=== PATIENT | female | born 1945 | race African-American/Black ===

== ENCOUNTER 2018-02-21 14:30 | Emergency (ER) | payer MEDICARE, OTHER ==
--- NOTE | 2018-02-21 15:20 | ER Document Report ---
ED Medical Screen (RME) - General Chief Complaint: General Weakness Stated Complaint: DIZZINESS, LEG WEAKNESS Time Seen by Provider: 02/21/18 15:09 Notes: 72 years old female presents today with general weakness tiredness as well as difficulty walking for the last several weeks. TRAVEL OUTSIDE OF THE [place] IN LAST 30 DAYS: No - Related Data Allergies/Adverse Reactions: No Known Allergies Allergy (Unverified 02/21/18 14:36) Physical Exam - Vital signs Vitals: Temp Pulse Resp BP Pulse Ox 98.5 F 84 14 92/71 L 100 02/21/18 14:43 02/21/18 14:43 02/21/18 14:43 02/21/18 14:43 02/21/18 14:43 Course - Vital Signs Vital signs: Temp Pulse Resp BP Pulse Ox 98.5 F 84 14 92/71 L 100 02/21/18 14:43 02/21/18 14:43 02/21/18 14:43 02/21/18 14:43 02/21/18 14:43 Doctor's Discharge - Discharge Referrals: LOCALMD,NO [Primary Care Provider] - Follow up as needed
--- NOTE | 2018-02-21 15:58 | ER Document Report ---
ED General - General Chief Complaint: General Weakness Stated Complaint: DIZZINESS, LEG WEAKNESS Time Seen by Provider: 02/21/18 15:09 Mode of Arrival: Ambulatory Information source: Patient, Relative, [facility] Records Notes: 72-year-old female with hypothyroidism, hyperlipidemia, hypertension presents via private vehicle with her daughter and family who are concerned for progressive weakness, decreased appetite, weight loss and a fall that occurred yesterday. Patient has had leg weakness for approximately 2 months with worsening of weakness this week. Family reports that every time the patient gets up to walk her legs began to wobble and she has to sit down immediately. Daughter reports that the patient has had a poor appetite and will only take small meals and Ensure. Patient had a fall at 3 AM 12 hours prior to arrival and struck her head on the dresser. She denies loss of consciousness. Patient has been seen by neurology and has had a recent head MRI which is reported to be normal. Patient has been recently treated for a urinary tract infection by her primary care physician Dr. Martinez and is currently on Macrobid. Patient also complaining of constipation and states that she has not had a normal bowel movement in over a week despite taking MiraLAX. Patient denies any abdominal pain, chest pain, shortness of breath, back pain. Although patient denies shortness of breath daughter reports that patient seems to be short of breath with exertion. TRAVEL OUTSIDE OF THE [place] IN LAST 30 DAYS: No - HPI Onset: Other Onset/Duration: Gradual, Persistent, Worse Quality of pain: No pain Associated symptoms: Nausea. denies: Chest pain, Vomiting, Shortness of breath Similar symptoms previously: Yes Recently seen / treated by doctor: Yes - Related Data Allergies/Adverse Reactions: No Known Allergies Allergy (Unverified 02/21/18 14:36) Past Medical History - General Information source: Patient - Social History Smoking Status: Former Smoker Frequency of alcohol use: None Drug Abuse: None Lives with: Family Family History: Reviewed & Not Pertinent Patient has suicidal ideation: No Patient has homicidal ideation: No - Past Medical History Cardiac Medical History: Reports: Hx Hypercholesterolemia, Hx Hypertension Renal/ Medical History: Denies: Hx Peritoneal Dialysis Past Surgical History: Reports: Hx Gynecologic Surgery - partial hysterectomy Review of Systems - Review of Systems Notes: REVIEW OF SYSTEMS: CONSTITUTIONAL : Denies fever, chills, or sweats. Denies recent illness. Denies weight loss, recent hospitalizations. EENT: Denies visual changes, eye pain. Denies nasal or sinus congestion or discharge. Denies sore throat, oral lesions, difficulty swallowing. CARDIOVASCULAR: Denies chest pain. Denies palpitations. Denies lower extremity edema. RESPIRATORY: Denies cough, cold, or chest congestion. Denies shortness of breath, wheezing. GASTROINTESTINAL: Denies abdominal pain or distention. Denies nausea, vomiting , or diarrhea. Denies blood in vomitus, stools, or per rectum. Denies black, tarry stools. Denies constipation. GENITOURINARY: Denies difficulty urinating, painful urination, frequency, blood in urine, or vaginal discharge. MUSCULOSKELETAL: Denies back or neck pain or stiffness. Denies joint pain or swelling. SKIN: Denies rash, lesions or sores. HEMATOLOGIC : Denies easy bruising or bleeding. LYMPHATIC: Denies swollen glands. NEUROLOGICAL: Denies confusion or altered mental status. Denies passing out or loss of consciousness. Denies dizziness or lightheadedness. Denies headache. Denies paralysis. Denies problems difficulty with ambulation, slurred speech. Denies sensory loss, numbness, or tingling. Denies seizures. PSYCHIATRIC: Denies anxiety or stress. Denies depression, suicidal ideation, or homicidal ideation. Denies visual or auditory hallucinations. Constitutional: Weakness Physical Exam - Vital signs Vitals: Temp Pulse Resp BP Pulse Ox 98.5 F 84 14 92/71 L 100 02/21/18 14:43 02/21/18 14:43 02/21/18 14:43 02/21/18 14:43 02/21/18 14:43 - Notes Notes: PHYSICAL EXAMINATION: GENERAL: Well-appearing, well-nourished and in no acute distress. HEAD: Atraumatic, normocephalic. EYES: Pupils equal round and reactive to light, extraocular movements intact, conjunctiva are normal. ENT: Nares patent, oropharynx clear without exudates. Moist mucous membranes. NECK: Normal range of motion, supple without lymphadenopathy LUNGS: Breath sounds clear to auscultation bilaterally and equal. No wheezes rales or rhonchi. HEART: Regular rate and rhythm without murmurs ABDOMEN: Soft, nontender, nondistended abdomen. No guarding, no rebound. No masses appreciated. Female : deferred Musculoskeletal: Normal range of motion, no pitting or edema. No cyanosis. NEUROLOGICAL: Cranial nerves grossly intact. Normal speech. Normal sensory, motor exams. NIH 0 PSYCH: Normal mood, normal affect. SKIN: Warm, Dry, normal turgor, no rashes or lesions noted. Course - Re-evaluation Re-evalutation: Laboratory 02/21/18 02/21/18 02/21/18 16:30 16:30 16:30 WBC 6.7 RBC 4.09 Hgb 11.4 L Hct 35.0 L MCV 86 MCH 28.0 MCHC 32.7 RDW 14.0 Plt Count 225 Seg Neutrophils % 69.0 Lymphocytes % 18.8 Monocytes % 11.2 Eosinophils % 0.5 Basophils % 0.5 Absolute Neutrophils 4.6 Absolute Lymphocytes 1.3 Absolute Monocytes 0.8 Absolute Eosinophils 0.0 Absolute Basophils 0.0 Sodium 142.8 Potassium 4.0 Chloride 101 Carbon Dioxide 31 H Anion Gap 11 BUN 25 H Creatinine 1.41 H Est GFR ( Amer) 44 L Est GFR (Non-Af Amer) 37 L Glucose 109 Calcium 10.1 Total Bilirubin 0.4 Direct Bilirubin 0.3 Neonat Total Bilirubin Not Reportable Neonat Direct Bilirubin Not Reportable Neonat Indirect Bili Not Reportable AST 20 ALT 19 Alkaline Phosphatase 88 Troponin I < 0.012 NT-Pro-B Natriuret Pep 178 Total Protein 6.9 Albumin 4.0 TSH Free T4 Free T3 pg/mL Urine Color Urine Appearance Urine pH Ur Specific Carson Urine Protein Urine Glucose (UA) Urine Ketones Urine Blood Urine Nitrite Urine Bilirubin Urine Urobilinogen Ur Leukocyte Esterase Urine WBC (Auto) Urine RBC (Auto) U Hyaline Cast (Auto) Squamous Epi Cells Auto Urine Mucus (Auto) Urine Ascorbic Acid 02/21/18 02/21/18 16:30 17:24 WBC RBC Hgb Hct MCV MCH MCHC RDW Plt Count Seg Neutrophils % Lymphocytes % Monocytes % Eosinophils % Basophils % Absolute Neutrophils Absolute Lymphocytes Absolute Monocytes Absolute Eosinophils Absolute Basophils Sodium Potassium Chloride Carbon Dioxide Anion Gap BUN Creatinine Est GFR ( Amer) Est GFR (Non-Af Amer) Glucose Calcium Total Bilirubin Direct Bilirubin Neonat Total Bilirubin Neonat Direct Bilirubin Neonat Indirect Bili AST ALT Alkaline Phosphatase Troponin I NT-Pro-B Natriuret Pep Total Protein Albumin TSH 0.24 L Free T4 1.02 Free T3 pg/mL 2.81 Urine Color YELLOW Urine Appearance SLIGHTLY-CLOUDY Urine pH 7.0 Ur Specific Carson 1.015 Urine Protein NEGATIVE Urine Glucose (UA) NEGATIVE Urine Ketones NEGATIVE Urine Blood NEGATIVE Urine Nitrite NEGATIVE Urine Bilirubin NEGATIVE Urine Urobilinogen NEGATIVE Ur Leukocyte Esterase NEGATIVE Urine WBC (Auto) 1 Urine RBC (Auto) 1 U Hyaline Cast (Auto) 12 Squamous Epi Cells Auto 1 Urine Mucus (Auto) RARE Urine Ascorbic Acid NEGATIVE Head CT 02/21/18 15:19 IMPRESSION: NORMAL BRAIN CT WITHOUT CONTRAST. EVIDENCE OF ACUTE STROKE: NO. Chest X-Ray 02/21/18 15:49 IMPRESSION: NO ACUTE RADIOGRAPHIC FINDING IN THE CHEST. Abdomen X-Ray 02/21/18 16:12 IMPRESSION: NO RADIOGRAPHIC EVIDENCE FOR ACUTE ABDOMINAL DISEASE. 02/21/18 16:09 72-year-old female with hypothyroidism, hyperlipidemia, hypertension presents via private vehicle with her daughter and family who are concerned for progressive weakness, decreased appetite, weight loss and a fall that occurred yesterday. Patient has had leg weakness for approximately 2 months with worsening of weakness this week. Upon arrival vitals were reviewed and within normal limits. Patient does not appear toxic, she does appear mildly dehydrated. She is alert and oriented 4. She has a normal neurologic and physical exam. NIH is 0. Patient has 5 out of 5 strength in her upper and lower extremities. CBC is without leukocytosis, anemia. CMP does show an elevated creatinine of 1.41 for which patient received 2 L of IV fluids. This is likely secondary to patient's poor p.o. intake. I have no previous labs to compare. Patient does have a low TSH but normal T3 and T4. CT of the head was obtained because of the patient's recent fall and that showed no acute process. Chest x-ray also within normal limits. Abdominal x-ray also within normal limits. Daughter is at the bedside and states that patient has been seen by neurology and has had a recent normal MRI of her brain. Patient has been on Macrobid for her urinary tract infection which is undetectable today. Cardiac enzymes within normal limits. This is an ongoing, progressing problem. Patient is already in physical therapy. I see no need or benefit for hospitalizations at this time. I did advise that the patient use a walker and offered to provide a prescription but the family states that they have that handled. Patient/family provided the opportunity to ask questions, and express concerns. Discharge instructions discussed. Patient is agreeable with discharge home. Return indications explained and discussed with the patient who displays understanding. Patient encouraged to return to the emergency department immediately with any concerns. 02/21/18 23:01 I did speak to Dr. Evans who is covering for Dr. Martinez we did review the physical exam and lab findings. He advises follow-up with Dr. Martinez on Saturday. 02/21/18 23:01 02/21/18 23:06 - Vital Signs Vital signs: Temp Pulse Resp BP Pulse Ox 98.5 F 84 13 133/88 H 100 02/21/18 14:43 02/21/18 14:43 02/21/18 18:01 02/21/18 18:01 02/21/18 18:01 - Laboratory Result Diagrams: 02/21/18 16:30 02/21/18 16:30 Laboratory results interpreted by me: 02/21/18 02/21/18 02/21/18 16:30 16:30 16:30 Hgb 11.4 L Hct 35.0 L Carbon Dioxide 31 H BUN 25 H Creatinine 1.41 H Est GFR ( Amer) 44 L Est GFR (Non-Af Amer) 37 L TSH 0.24 L - Diagnostic Test Radiology reviewed: Image reviewed, Reports reviewed - EKG Interpretation by Me EKG shows normal: Sinus rhythm Rate: Normal Rhythm: NSR Heart block present: 1st Degree When compared to previous EKG there are: Previous EKG unavailable Discharge - Discharge Clinical Impression: Weakness generalized, JAY (acute kidney injury), Decreased appetite, Low TSH level Condition: Good Disposition: HOME, SELF-CARE Instructions: Kidney Injury ([facility]), Weakness ([facility]) Additional Instructions: Please follow-up with Dr. Martinez on Saturday. Your labs today indicate mild dehydration. It is very important that you take in plenty of water throughout the day. I advised using a walker when walking anywhere. Forms: Parent Work Note, Elevated Blood Pressure Referrals: LOCALMD,NO [NO LOCAL MD] - Follow up as needed ED NIH Stroke Scale - NIH Stroke Scale *: 1. NIH scale should be completed with appropriate accompanying assessment tools. *: 2. The NIH should reflect what the patient is capable of doing and should not be coached by the clinician. 1a. Level of Consciousness: 0=Alert;keenly responsive -: 1=Drowsy -: 2=Obtunded -: 3=Coma/unresponsive or reflex to noxious stimuli. 1a. Responses: 0 1b. Orientation Questions: a. What month is it? -: b. How old are you? -: 0=Answers both questions correctly. -: 1=Answers one question correctly or patient is intubated or has orotracheal trauma. -: 2=Answers neither question correctly. 1b. Responses: 0 1c. Response to commands: a. Open and close eyes? -: b. [employer] Signal [employer]er and release hand? -: Credit is given despite weakness. Demonstration of task is permitted. Substitute command if hands cannot be used. -: 0=Performs both tasks correctly -: 1=Performs one task correctly -: 2=Performs neither task correctly 1c. Responses: 0 2. Gaze: Establish eye contact and instruct patient to "Follow my finger" -: 0=Normal -: 1=Partial gaze palsy. Gaze is abnormal in one or both eyes, but where forced deviation or total gaze paresis is not present. -: 2=Forced deviation or total gaze paresis. 2. Responses: 0 3. Visual Roe: Sees fingers in all four quadrants. -: 0=No visual loss. -: 1=Partial hemianopsia. -: 2=Complete hemianopsia. -: 3=Bilateral hemianopsia (including Cortical blindness) 3. Responses: 0 4. Facial Movement: Instruct patient to: -: a. Show me your teeth -: b. Raise your eyebrows -: c. Close your eyes -: d. Smile -: 0=Normal symmetrical movement -: 1=Minor paralysis (flattened nasolabial fold, asymmetry on smiling). -: 2=Partial paralysis (total or near total paralysis of lower face). -: 3=Complete paralysis of upper and lower face 4. Responses: 0 5. Motor functions (left arm): Alternate sides and extend each arm with palms down (90 degrees if sitting or 45 degrees for supine). -: 0=No drift;limb holds for full 10 seconds. -: 1=Drift; limb holds but drifts down before full 10 seconds, but does not hit bed. -: 2=Some effort against gravity; limb cannot get to or maintain position. -: 3=No effort against gravity; limb falls. -: 4=No movement. -: UN=Amputation, joint fusion, explain in comments. 5. Responses (left arm): 0 5. Motor Functions (right arm): Alternate sides and extend each arm with palms down (90 degrees if sitting or 45 degrees for supine). -: 0=No drift;limb holds for full 10 seconds. -: 1=Drift; limb holds but drifts down before full 10 seconds, but does not hit bed. -: 2=Some effort against gravity; limb cannot get to or maintain position. -: 3=No effort against gravity; limb falls. -: 4=No movement. -: UN=Amputation, joint fusion, explain in comments. 5. Responses (right arm): 0 6. Motor Functions (left leg): With patient lying supine, alternate sides and extend each leg (30 degrees always while supine). -: 0=No drift, leg holds position for full 5 seconds -: 1=Drift; leg falls before full 5 seconds but does not hit bed. -: 2=Some effort against gravity, leg falls to bed but some effort against gravity. -: 3=No effort against gravity, leg falls to bed immediately. -: 4=No movement. -: UN=Amputation, joint fusion; explain in comments. 6. Responses (left leg): 0 6. Motor Functions (right leg): With patient lying supine, alternate sides and extend each leg (30 degrees always while supine). -: 0=No drift, leg holds position for full 5 seconds -: 1=Drift; leg falls before full 5 seconds but does not hit bed. -: 2=Some effort against gravity, leg falls to bed but some effort against gravity. -: 3=No effort against gravity, leg falls to bed immediately. -: 4=No movement. -: UN=Amputation, joint fusion; explain in comments. 6. Responses (right leg): 0 7. Limb Ataxia: With eyes open instruct patient to: -: a. "Touch your finger to your nose". -: b. "Touch your heel to your cevallos" -: 0=Absent -: 1=Present in one limb. -: 2=Present in two limbs. -: UN=Amputation or joint fusion; explain in comments. 7. Responses: 0 8. Sensory: Test sensation using pinprick or noxious stimuli. Test as many body parts as possible. -: 0=Normal;no sensory loss -: 1=Mile to moderate sensory loss (patient feels pin prick but is less sharp on affected side). -: 2=Severe or total sensory loss. 8. Responses: 0 9. Best Language: Instruct patient to: -: a. "Describe what you see in this picture." -: b. "Name the items in this picture." -: c. "Read these sentences." -: 0=No aphasia, normal -: 1=Mild to moderate aphasia. -: 2=Severe aphasia -: 3=Mute, global aphasia, no usable speech or auditory comprehension. 9. Responses: 0 10. Articulation, Dysarthia: Instruct patient to: -: "Read these words" or "Repeat these words" -: 0=Normal -: 1=Mild to moderate; patient may slur some words but can be understood without difficulty. -: 2=Severe; patients speech so slurred as to be unintelligible in the absence of dysphasia. -: UN=Intubated or other physical barrier, explain in comments. 10. Responses: 0 11. Extinction or inattention: 0=No abnormality -: 1= Visual, tactile, auditory, spatial, or personal inattention or extinction to bilateral simulation in one or the sensory modalities. -: 2=Profound kimmy-inattention or kimmy-inattention to more than one modality; does not recognize own hand. 11. Responses: 0 Total Score: 0
[2018-02-21] MEDS ORDERED: NORMAL SALINE 500 ML IV ONE ×2 (16:01→17:18)
--- NOTE | 2018-02-21 16:13 | RADIOLOGY REPORT (SQ) ---
EXAM DESCRIPTION: CHEST 2 VIEWS COMPLETED DATE/TIME: 02/21/2018 4:07 pm REASON FOR STUDY: weakness COMPARISON: None. EXAM PARAMETERS: NUMBER OF VIEWS: two views TECHNIQUE: Digital Frontal and Lateral radiographic views of the chest acquired. RADIATION DOSE: NA LIMITATIONS: none FINDINGS: LUNGS AND PLEURA: No opacities, masses or pneumothorax. No pleural effusion. MEDIASTINUM AND HILAR STRUCTURES: No masses or contour abnormalities. HEART AND VASCULAR STRUCTURES: Heart normal size. No evidence for failure. Ectatic aorta. BONES: No acute findings. HARDWARE: None in the chest. OTHER: No other significant finding. IMPRESSION: NO ACUTE RADIOGRAPHIC FINDING IN THE CHEST. TECHNICAL DOCUMENTATION: JOB ID: [id number] [employer]- All Rights Reserved Reading location - IP/workstation name: [email or web address]
--- NOTE | 2018-02-21 16:28 | RADIOLOGY REPORT (SQ) ---
EXAM DESCRIPTION: CT HEAD WITHOUT COMPLETED DATE/TIME: 02/21/2018 4:12 pm REASON FOR STUDY: Headache COMPARISON: None. TECHNIQUE: Axial images acquired through the brain without intravenous contrast. Images reviewed wi th bone, brain and subdural windows. Additional sagittal and coronal reconstructions were generated. Images stored on PACS. All CT scanners at this facility use dose modulation, iterative reconstruction, and/or weight based d osing when appropriate to reduce radiation dose to as low as reasonably achievable (ALARA). [facility]: Dose Right [facility]: CareDose [facility]: Dose Right [facility]: Teradose 4D [facility]: [employer] RADIATION DOSE: CT Rad equipment meets quality standard of care and radiation dose reduction techniq ues were employed. CTDIvol: 53.2 mGy. DLP: 1124 mGy-cm. mGy. LIMITATIONS: None. FINDINGS: VENTRICLES: Normal size and contour. CEREBRUM: No masses. No hemorrhage. No midline shift. No evidence for acute infarction. Normal gra y/white matter differentiation. No areas of low density in the white matter. CEREBELLUM: No masses. No hemorrhage. No alteration of density. No evidence for acute infarction. EXTRAAXIAL SPACES: No fluid collections. No masses. ORBITS AND GLOBE: No intra- or extraconal masses. Normal contour of globe without masses. CALVARIUM: No fracture. PARANASAL SINUSES: No fluid or mucosal thickening. SOFT TISSUES: No mass or hematoma. OTHER: No other significant finding. IMPRESSION: NORMAL BRAIN CT WITHOUT CONTRAST. EVIDENCE OF ACUTE STROKE: NO. COMMENT: Quality ID # [id number]: Final reports with documentation of one or more dose reduction techniques (e.g., Automated exposure control, adjustment of the mA and/or kV according to patient size, use of iterative reconstruction technique) TECHNICAL DOCUMENTATION: JOB ID: [id number] [email or web address]- All Rights Reserved Reading location - IP/workstation name: [email or web address]
[2018-02-21] MEDS ORDERED: METOCLOPRAMIDE HCL INJ/PF 10 MG/2 ML SDV IV ONE (16:37)
[2018-02-21 16:51] LABS: ABSOLUTE LYMPHOCYTES (AUTO) 1.3 10^3/uL (0.5-4.7); ABSOLUTE MONOCYTES (AUTO) 0.8 10^3/uL (0.1-1.4); ABSOLUTE NEUT (AUTO) 4.6 10^3/uL (1.7-8.2); BASOPHILS % (AUTO) 0.5 % (0-2); EOSINOPHILS % (AUTO) 0.5 % (0-6); HEMOGLOBIN 11.4 g/dL (12.0-15.5); LYMPHOCYTES % (AUTO) 18.8 % (13-45); MEAN CORPUSCULAR HGB CONC 32.7 g/dL (32.0-36.0); MEAN CORPUSCULAR VOLUME 86 fl (80-97); MONOCYTES % (AUTO) 11.2 % (3-13); PLATELET COUNT 225 10^3/uL (150-450); RED BLOOD COUNT 4.09 10^6/uL (3.72-5.28); TOTAL CELLS COUNTED % (AUTO) 100 %; WHITE BLOOD COUNT 6.7 10^3/uL (4.0-10.5)
--- NOTE | 2018-02-21 16:54 | RADIOLOGY REPORT (SQ) ---
EXAM DESCRIPTION: ABDOMEN 2 VIEWS COMPLETED DATE/TIME: 02/21/2018 4:26 pm REASON FOR STUDY: constipation COMPARISON: None. NUMBER OF VIEWS: Two views. TECHNIQUE: Supine and upright radiographic images of the abdomen acquired. LIMITATIONS: None. FINDINGS: FREE AIR: None. No abnormal gas collections. LUNG BASES: Clear. BOWEL GAS PATTERN: Nonobstructive pattern. No dilated loops or air fluid levels. CALCIFICATIONS: No suspicious calcifications. SOFT TISSUES: No gross mass or suggestion of organomegaly. HARDWARE: None in the abdomen. BONES: No acute fracture. No worrisome bone lesions. OTHER: No other significant finding. IMPRESSION: NO RADIOGRAPHIC EVIDENCE FOR ACUTE ABDOMINAL DISEASE. TECHNICAL DOCUMENTATION: JOB ID: [id number] [email or web address]- All Rights Reserved Reading location - IP/workstation name: [email or web address][email or web address]
[2018-02-21 17:15] LABS: ALANINE AMINOTRANSFERASE 19 U/L (9-52); ALKALINE PHOSPHATASE 88 U/L (38-126); ANION GAP 11 (5-19); ASPARTATE AMINO TRANSFERASE 20 U/L (14-36); BILIRUBIN,DIRECT 0.3 mg/dL (0.0-0.4); BILIRUBIN,TOTAL 0.4 mg/dL (0.2-1.3); BLOOD UREA NITROGEN 25 mg/dL (7-20); CALCIUM 10.1 mg/dL (8.4-10.2); CARBON DIOXIDE 31 mmol/L (22-30); CHLORIDE 101 mmol/L (98-107); GLUCOSE 109 mg/dL (75-110); SODIUM 142.8 mmol/L (137-145); TOTAL PROTEIN 6.9 g/dL (6.3-8.2)
[2018-02-21 17:27] LABS: NT PRO BNP 178 pg/mL (5-900)
[2018-02-21 17:30] LABS: TROPONIN I < 0.012 ng/mL
[2018-02-21 17:33] LABS: FREE T3 2.81 pg/mL (2.77-5.27); FREE T4 (FREE THYROXINE) 1.02 ng/dL (0.78-2.19)
[2018-02-21 17:41] LABS: APPEARANCE,URINE SLIGHTLY-CLOUDY; BILIRUBIN,URINE NEGATIVE (NEGATIVE); COLOR,URINE YELLOW; GLUCOSE, URINE NEGATIVE (NEGATIVE); KETONES,URINE NEGATIVE (NEGATIVE); LEUKOCYTE ESTERASE,URINE NEGATIVE (NEGATIVE); NITRITE,URINE NEGATIVE (NEGATIVE); PROTEIN,URINE NEGATIVE (NEGATIVE); URINE SPECIFIC GRAVITY 1.015; UROBILINOGEN,URINE NEGATIVE mg/dL (<2.0)
[2018-02-21 17:47] LABS: THYROID STIMULATING HORMONE 0.24 uIU/mL (0.47-4.68)
[2018-02-21 18:14] VITALS: BP 133/88
--- NOTE | 2018-02-21 19:13 | EKG REPORT ---
SEVERITY:- ABNORMAL ECG - SINUS RHYTHM FIRST DEGREE AV BLOCK LEFT AXIS DEVIATION : Confirmed by: Yeison Lobato MD 21-Feb-2018 19:13:12
== END 2018-02-21 18:41 | disposition home or self-care (01) ==
LOC: EDBD → ER 14:30
DX: N17.9 Acute kidney failure, unspecified (principal); R42 Dizziness and giddiness; M62.81 Muscle weakness (generalized); R63.0 Anorexia; E03.9 Hypothyroidism, unspecified; E78.5 Hyperlipidemia, unspecified; I10 Essential (primary) hypertension; Z87.891 Personal history of nicotine dependence; R29.700 NIHSS score 0
CPT/HCPCS: 93005; 99285; 96360; 96361; 36415; 84439; 84443; 85025; 80053; 81001; 84484; 84481; 83880; 74019; 71046; 70450; 93010; J2765; J7040

== ENCOUNTER 2019-01-25 11:07 | Emergency (ER) | payer MEDICARE, OTHER ==
[2019-01-25 11:11] VITALS: BP 126/85
[2019-01-25] MEDS ORDERED: TETRACAINE HCL 0.5% OPH SOLN 4 ML OD ONE (11:23)
--- NOTE | 2019-01-25 11:26 | ER Document Report ---
HPI - HPI Patient complains to provider of: right eye irritation Time Seen by Provider: 01/25/19 11:15 Onset: This morning Onset/Duration: Sudden Quality of pain: No pain Pain Level: Denies Context: This 73-year-old female presents emergency department with complaints of right eye redness. She reports that she woke up this morning her eye was red and she had clear drainage coming out of it. Denies matting. Denies pain denies trauma. She reports it does feel like something is in it. Sub-conjunctive a little hemorrhage noted. Patient does have history of cataract surgery 1 year ago in a couple months ago she had a film removed. She reports she is been sneezing and coughing a lot. She denies fever vomiting diarrhea. Denies problems with her visions. Associated Symptoms: None Exacerbated by: Denies Relieved by: Denies Similar symptoms previously: No Recently seen / treated by doctor: No - CONSTITUTIONAL Constitutional: DENIES: Fever, Chills - EENT EENT: REPORTS: Eye problems - R eye Past Medical History - General Information source: Patient, Relative - Social History Smoking Status: Never Smoker Cigarette use (# per day): No Frequency of alcohol use: None Drug Abuse: None Family History: Reviewed & Not Pertinent Patient has suicidal ideation: No Patient has homicidal ideation: No - Past Medical History Cardiac Medical History: Reports: Hx Hypercholesterolemia, Hx Hypertension Renal/ Medical History: Denies: Hx Peritoneal Dialysis Past Surgical History: Reports: Hx Gynecologic Surgery - partial hysterectomy, Other - Cataract surgery 1 year ago with the film removed couple months ago. Vertical Provider Document - CONSTITUTIONAL Agree With Documented VS: Yes Exam Limitations: No Limitations General Appearance: WD/WN, No Apparent Distress - INFECTION CONTROL TRAVEL OUTSIDE OF THE [place] IN LAST 30 DAYS: No - HEENT HEENT: Atraumatic, Conjuctival Injection, Normocephalic, PERRLA - NECK Neck: Normal Inspection, Supple. negative: Lymphadenopathy-Left, Lymph adenopathy-Right - RESPIRATORY Respiratory: Breath Sounds Normal, No Respiratory Distress - CARDIOVASCULAR Cardiovascular: Regular Rate - MUSCULOSKELETAL/EXTREMETIES Musculoskeletal/Extremeties: PASQUALE RG - NEURO Level of Consciousness: Awake, Alert, Appropriate Motor/Sensory: No Motor Deficit - DERM Integumentary: Warm, Dry Course - Re-evaluation Re-evalutation: 01/25/19 14:10 This 73-year-old female presents the emergency department with complaints of red eye with clear drainage that started today. Reports she woke up with eye red denies pain. Feels like something is in it. Denies trauma. Reports history of cataract surgery 1 year ago and couple months ago she had a film removed. Patient tolerated eye exam without problems. She was instructed on subconjunctival tibial hemorrhage. She was also instructed on importance of follow-up with her assembly room supervisor tomorrow she verbalized understanding to all instructions. Dictation of this chart was performed using voice recognition software; therefore, there may be some unintended grammatical errors. - Vital Signs Vital signs: Temp Pulse Resp BP Pulse Ox 98.3 F 96 16 126/85 H 98 01/25/19 11:10 01/25/19 11:10 01/25/19 11:10 01/25/19 11:10 01/25/19 11:10 Procedures - Eye Procedure Right Eye Irrigated w/ Saline (ccs): 10 Alcaine Drops Administered: Yes - tetracaine Fluorescein applied: Right Slit lamp used: No Notes: 01/25/19 14:10 smith lamp utilized, no signs of abrasion, pt tolerated procedure well Discharge - Discharge Clinical Impression: Subconjunctival hemorrhage of right eye Condition: Stable Disposition: HOME, SELF-CARE Instructions: Subconjunctival Hemorrhage ([facility]) Additional Instructions: *You have been evaluated for subconjunctival hemorrhage *Good hand washing *Monitor your eye for drainage pain vision problems *Follow up with an assembly room supervisor Dr Mary Ayala tomorrow for recheck *Return to ED for worsening condition, changes, needs Forms: Elevated Blood Pressure Referrals: VALERIANO SHEPPARD MD [Primary Care Provider] - Follow up as needed
== END 2019-01-25 11:55 | disposition home or self-care (01) ==
LOC: ER 11:07
DX: H11.31 Conjunctival hemorrhage, right eye (principal); E78.00 Pure hypercholesterolemia, unspecified; I10 Essential (primary) hypertension
CPT/HCPCS: 99283; J3490

== ENCOUNTER → 2019-03-24 | Outpatient (CLI) | payer MEDICARE, OTHER ==
--- NOTE | 2019-03-24 15:48 | WOMENS IMAGING REPORT ---
EXAM DESCRIPTION: 3D SCREENING MAMMO BILAT COMPLETED DATE/TIME: 03/24/2019 3:11 pm REASON FOR STUDY: Z12.31 ENCOUNTER FOR SCREENING MAMMOGRAM FOR MALIGNANT NEOPLASM OF BREAST Z12.31 ENCNTR SCREEN MAMMOGRAM FOR MALIGNANT NEOPLASM OF [place] COMPARISON: No previous EXAM PARAMETERS: Views: Standard craniocaudal and mediolateral oblique views of each breast recorded using digital acquisition and breast tomosynthesis. Read with the assistance of CAD. .[facility] - [employer] Customer Success Specialist Version 9.2 LIMITATIONS: None. FINDINGS: No suspicious masses, suspicious calcifications or architectural distortion. No areas of c oncern. IMPRESSION: NEGATIVE MAMMOGRAM. BIRADS 1. BREAST DENSITY: a. The breasts are almost entirely fatty. BIRAD: ASSESSMENT: 1 NEGATIVE RECOMMENDATION: ROUTINE SCREENING COMMENT: The patient has been notified of the results by letter per MQSA requirements. Additional no tification policies are in place for contacting patient with suspicious or incomplete findings. Quality ID #[id number]: The [employer] recommends an annual screening mammogram for women aged 40 years or over. This facility utilizes a reminder system to ensure that all patients receive reminder letters, and/or direct phone calls for appointments. This includes reminders for routine scr eening mammograms, diagnostic mammograms, or other Breast Imaging Interventions when appropriate. Th is patient will be placed in the appropriate reminder system. TECHNICAL DOCUMENTATION: FINDING NUMBER: (1) ASSESSMENT: (1) JOB ID: [id number] [employer]- All Rights Reserved Reading location - IP/workstation name: [email or web address]
== END ==
LOC: WI 14:47
PROVIDERS: ATTEND Family Medicine
DX: Z12.31 Encounter for screening mammogram for malignant neoplasm of breast (principal)
CPT/HCPCS: 77063; 77067

== ENCOUNTER → 2019-03-25 | Outpatient (CLI) | payer MEDICARE, OTHER ==
[2019-03-25 11:11] LABS: HEMATOCRIT 34.3 % (36.0-47.0); HEMOGLOBIN 11.1 g/dL (12.0-15.5); MEAN CORPUSCULAR HEMOGLOBIN 28.5 pg (27.0-33.4); MEAN CORPUSCULAR HGB CONC 32.4 g/dL (32.0-36.0); MEAN CORPUSCULAR VOLUME 88 fl (80-97); PLATELET COUNT 223 10^3/uL (150-450); RED BLOOD COUNT 3.91 10^6/uL (3.72-5.28); RED CELL DISTRIBUTION WIDTH 15.7 % (11.5-14.0); WHITE BLOOD COUNT 3.8 10^3/uL (4.0-10.5)
[2019-03-25 11:27] LABS: APPEARANCE,URINE CLOUDY; BILIRUBIN,URINE NEGATIVE (NEGATIVE); COLOR,URINE YELLOW; GLUCOSE, URINE NEGATIVE (NEGATIVE); KETONES,URINE NEGATIVE (NEGATIVE); LEUKOCYTE ESTERASE,URINE SMALL (NEGATIVE); NITRITE,URINE NEGATIVE (NEGATIVE); PROTEIN,URINE NEGATIVE (NEGATIVE); URINE SPECIFIC GRAVITY 1.017; UROBILINOGEN,URINE NEGATIVE mg/dL (<2.0)
[2019-03-25 11:36] LABS: ANION GAP 7 (5-19); BLOOD UREA NITROGEN 18 mg/dL (7-20); CALCIUM 10.2 mg/dL (8.4-10.2); CARBON DIOXIDE 30 mmol/L (22-30); CHLORIDE 104 mmol/L (98-107); GLUCOSE 109 mg/dL (75-110); IRON(TIBC) 68.1 ug/dL (37-170)
== END ==
LOC: OD 10:25
PROVIDERS: ATTEND Internal Medicine Nephrology
DX: I12.9 Hypertensive chronic kidney disease with stage 1 through stage 4 chronic kidney disease, or unspecified chronic kidney disease (principal); N18.3 Chronic kidney disease, stage 3 (moderate); D63.1 Anemia in chronic kidney disease
CPT/HCPCS: 36415; 80048; 81001; 82728; 83540; 83550; 85027

== ENCOUNTER 2020-05-10 11:50 | Inpatient (IN) | payer MEDICARE, OTHER ==
--- NOTE | 2020-05-10 13:04 | ER Document Report ---
ED Medical Screen (RME) - General Stated Complaint: ALTERED MENTAL STATUS Time Seen by Provider: 05/10/20 12:51 Primary Care Provider: Francis TRUONG MD [Primary Care Provider] - Follow up as needed TRAVEL OUTSIDE OF THE [place].S[place] IN LAST 30 DAYS: No - HPI Notes: 05/10/20 13:01 75-year-old female with a history of hypertension and hyperlipidemia presents to the emergency room with her daughter for concerns of weakness, she was unable to get out of bed this morning, required assistance. typically patient ambulates with a cane, but she can walk without any issues with her cane. Daughter states that she has periods where she becomes unsteady that is getting worse. Patient has been evaluated at [place] for these issues, she is concerned she may have ALS. Denies any head trauma or change in level of consciousness. Denies any numbness or tingling down arms or legs, facial droop, slurred speech, changes in vision, chest pain or shortness of breath. last bowel movement was 4 days ago, does have a history of constipation. Denies any melena, denies any coffee-ground emesis. PCP is Dr. Martinez - Related Data Allergies/Adverse Reactions: No Known Allergies Allergy (Verified 01/26/19 15:18) Past Medical History - Past Medical History Cardiac Medical History: Reports: Hx Hypercholesterolemia, Hx Hypertension Renal/ Medical History: Denies: Hx Peritoneal Dialysis Past Surgical History: Reports: Hx Gynecologic Surgery - partial hysterectomy, Other - Cataract surgery 1 year ago with the film removed couple months ago. Physical Exam - Vital signs Vitals: Temp Pulse Resp BP Pulse Ox 97.7 F 100 14 101/71 100 05/10/20 12:07 05/10/20 12:07 05/10/20 12:07 05/10/20 12:07 05/10/20 12:07 Course - Vital Signs Vital signs: Temp Pulse Resp BP Pulse Ox 97.7 F 100 14 101/71 100 05/10/20 12:07 05/10/20 12:07 05/10/20 12:07 05/10/20 12:07 05/10/20 12:07 Doctor's Discharge - Discharge Referrals: Francis TRUONG MD [Primary Care Provider] - Follow up as needed
[2020-05-10 14:36] LABS: ABSOLUTE LYMPHOCYTES (AUTO) 0.7 10^3/uL (0.5-4.7); ABSOLUTE MONOCYTES (AUTO) 0.6 10^3/uL (0.1-1.4); ABSOLUTE NEUT (AUTO) 6.4 10^3/uL (1.7-8.2); BASOPHILS % (AUTO) 0.3 % (0-2); HEMATOCRIT 37.4 % (36.0-47.0); HEMOGLOBIN 12.4 g/dL (12.0-15.5); LYMPHOCYTES % (AUTO) 8.5 % (13-45); MEAN CORPUSCULAR HEMOGLOBIN 29.7 pg (27.0-33.4); MEAN CORPUSCULAR HGB CONC 33.2 g/dL (32.0-36.0); MEAN CORPUSCULAR VOLUME 90 fl (80-97); MONOCYTES % (AUTO) 8.2 % (3-13); PLATELET COUNT 198 10^3/uL (150-450); RED BLOOD COUNT 4.18 10^6/uL (3.72-5.28); RED CELL DISTRIBUTION WIDTH 14.2 % (11.5-14.0); TOTAL CELLS COUNTED % (AUTO) 100 %; WHITE BLOOD COUNT 7.7 10^3/uL (4.0-10.5)
[2020-05-10 14:46] LABS: APPEARANCE,URINE CLOUDY; BILIRUBIN,URINE NEGATIVE (NEGATIVE); COLOR,URINE YELLOW; GLUCOSE, URINE NEGATIVE (NEGATIVE); KETONES,URINE TRACE mg/dL (NEGATIVE); LEUKOCYTE ESTERASE,URINE LARGE (NEGATIVE); NITRITE,URINE NEGATIVE (NEGATIVE); PROTEIN,URINE 100 mg/dL (NEGATIVE); URINE SPECIFIC GRAVITY 1.014; UROBILINOGEN,URINE NEGATIVE mg/dL (<2.0)
[2020-05-10 14:58] LABS: ALBUMIN 4.1 g/dL (3.5-5.0); ALKALINE PHOSPHATASE 97 U/L (38-126); ANION GAP 10 (5-19); ASPARTATE AMINO TRANSFERASE 24 U/L (14-36); BILIRUBIN,DIRECT 0.1 mg/dL (0.0-0.4); BILIRUBIN,TOTAL 0.9 mg/dL (0.2-1.3); BLOOD UREA NITROGEN 18 mg/dL (7-20); CALCIUM 10.1 mg/dL (8.4-10.2); CARBON DIOXIDE 26 mmol/L (22-30); CHLORIDE 104 mmol/L (98-107); GLUCOSE 120 mg/dL (75-110); POTASSIUM 4.2 mmol/L (3.6-5.0)
--- NOTE | 2020-05-10 15:22 | EKG REPORT ---
SEVERITY:- ABNORMAL ECG - SINUS RHYTHM PROBABLE LEFT ATRIAL ABNORMALITY LEFT ANTERIOR FASCICULAR BLOCK ANTERIOR INFARCT, AGE INDETERMINATE : Confirmed by: Clari Hannah MD 10-May-2020 15:22:16
[2020-05-10] MEDS ORDERED: CEFTRIAXONE 1 GM/D5W RTU 1 GM/50 ML RTUPB IV ONE (16:09)
[2020-05-10] MEDS ORDERED: NORMAL SALINE 1000 ML 1,000 ML IV ONE (16:10)
--- NOTE | 2020-05-10 17:16 | RADIOLOGY REPORT (SQ) ---
EXAM DESCRIPTION: CT HEAD WITHOUT IMAGES COMPLETED DATE/TIME: 05/10/2020 1:16 pm REASON FOR STUDY: AMS COMPARISON: 02/21/2018. TECHNIQUE: Axial images acquired through the brain without intravenous contrast. Images reviewed wi th bone, brain and subdural windows. Additional sagittal and coronal reconstructions were generated. Images stored on PACS. All CT scanners at this facility use dose modulation, iterative reconstruction, and/or weight based d osing when appropriate to reduce radiation dose to as low as reasonably achievable (ALARA). [facility]: Dose Right [facility]: CareDose [facility]: Dose Right [facility]: Teradose 4D [facility]: FeedHenry RADIATION DOSE: mGy. LIMITATIONS: None. FINDINGS: VENTRICLES: Normal size and contour. CEREBRUM: No masses. No hemorrhage. No midline shift. No evidence for acute infarction. Normal gra y/white matter differentiation. No areas of low density in the white matter. CEREBELLUM: No masses. No hemorrhage. No alteration of density. No evidence for acute infarction. EXTRAAXIAL SPACES: No fluid collections. No masses. ORBITS AND GLOBE: No intra- or extraconal masses. Normal contour of globe without masses. CALVARIUM: No fracture. PARANASAL SINUSES: No fluid or mucosal thickening. SOFT TISSUES: No mass or hematoma. OTHER: No other significant finding. IMPRESSION: NORMAL BRAIN CT WITHOUT CONTRAST. EVIDENCE OF ACUTE STROKE: NO. COMMENT: Quality ID # [id number]: Final reports with documentation of one or more dose reduction techniques (e.g., Automated exposure control, adjustment of the mA and/or kV according to patient size, use of iterative reconstruction technique) TECHNICAL DOCUMENTATION: JOB ID: [id number] 2010 [employer]- All Rights Reserved Reading location - IP/workstation name: [email or web address]
--- NOTE | 2020-05-10 17:31 | RADIOLOGY REPORT (SQ) ---
EXAM DESCRIPTION: CHEST SINGLE VIEW IMAGES COMPLETED DATE/TIME: 05/10/2020 1:37 pm REASON FOR STUDY: AMS COMPARISON: 12/17/2011. EXAM PARAMETERS: NUMBER OF VIEWS: One view. TECHNIQUE: Single frontal radiographic view of the chest acquired. RADIATION DOSE: NA LIMITATIONS: None. FINDINGS: LUNGS AND PLEURA: No opacities, masses or pneumothorax. No pleural effusion. MEDIASTINUM AND HILAR STRUCTURES: No masses. Contour normal. HEART AND VASCULAR STRUCTURES: Heart normal in size. Marked prominence of the aortic knob consistent with aneurysm. BONES: No acute findings. HARDWARE: None in the chest. OTHER: No other significant finding. IMPRESSION: THORACIC AORTIC ANEURYSM. OTHERWISE NO ACUTE RADIOGRAPHIC FINDING IN THE CHEST. TECHNICAL DOCUMENTATION: JOB ID: [id number] 2010 [employer] [facility] ([employer])- All Rights Reserved Reading location - IP/workstation name: [email or web address]
--- NOTE | 2020-05-10 17:40 | ER Document Report ---
ED Dizziness/Weakness - General Chief Complaint: Weakness Stated Complaint: ALTERED MENTAL STATUS Time Seen by Provider: 05/10/20 12:51 Primary Care Provider: Francis TRUONG MD [ACTIVE STAFF] - Follow up as needed Mode of Arrival: Ambulatory Information source: Patient TRAVEL OUTSIDE OF THE [place] IN LAST 30 DAYS: No - HPI Notes: Patient is brought in by family for weakness. Patient apparently had a normal day yesterday. However family states that today patient was unable to get out of bed. They had to assist patient into a chair and patient is been unable to ambulate due to weakness. They states she also had trouble bearing weight secondary to weakness. She has had this several times in the past and has been seen at other hospitals with no diagnosis. Nothing appears make the symptoms better or worse. They have been constant all day. They have improved slightly this evening with her able to bear weight now but still not able to ambulate. No focal deficits. No vomiting or diarrhea. No fevers. She denies pain. No changes of vision speech or swallowing. No significant confusion - Related Data Allergies/Adverse Reactions: No Known Allergies Allergy (Verified 01/26/19 15:18) Past Medical History - General Information source: Patient - Social History Smoking Status: Never Smoker Frequency of alcohol use: None Drug Abuse: None Family History: Reviewed & Not Pertinent - Past Medical History Cardiac Medical History: Reports: Hx Hypercholesterolemia, Hx Hypertension Renal/ Medical History: Denies: Hx Peritoneal Dialysis Past Surgical History: Reports: Hx Gynecologic Surgery - partial hysterectomy, Other - Cataract surgery 1 year ago with the film removed couple months ago. Review of Systems - Review of Systems Constitutional: denies: Chills, Fever Cardiovascular: denies: Chest pain, Palpitations Respiratory: denies: Cough, Short of breath -: Yes All other systems reviewed and negative Physical Exam - Vital signs Vitals: Temp Pulse Resp BP Pulse Ox 97.7 F 100 14 101/71 100 05/10/20 12:07 05/10/20 12:07 05/10/20 12:07 05/10/20 12:07 05/10/20 12:07 Interpretation: Normal - General General appearance: Appears well, Alert - HEENT Head: Normocephalic, Atraumatic Eyes: Normal Pupils: PERRL - Respiratory Respiratory status: No respiratory distress Chest status: Nontender Breath sounds: Normal Chest palpation: Normal - Cardiovascular Rhythm: Regular Heart sounds: Normal auscultation Murmur: No - Abdominal Inspection: Normal Distension: No distension Bowel sounds: Normal Tenderness: Nontender Organomegaly: No organomegaly - Back Back: Normal, Nontender - Extremities General upper extremity: Normal inspection, Nontender, Normal color, Normal ROM, Normal temperature General lower extremity: Normal inspection, Nontender, Normal color, Normal ROM, Normal temperature, Normal weight bearing. 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 No: Pronator drift Sensory: Normal - Psychological Associated symptoms: Normal affect, Normal mood - Skin Skin Temperature: Warm Skin Moisture: Dry Skin Color: Normal Course - Vital Signs Vital signs: Temp Pulse Resp BP Pulse Ox 98.1 F 80 20 136/84 H 100 05/10/20 16:54 05/10/20 16:54 05/10/20 16:54 05/10/20 16:54 05/10/20 16:54 - Laboratory Result Diagrams: 05/10/20 14:00 05/10/20 14:00 Laboratory results interpreted by me: 05/10/20 05/10/20 05/10/20 13:59 14:00 14:00 RDW 14.2 H Lymph % (Auto) 8.5 L Seg Neutrophils % 83.0 H Creatinine 1.52 H Est GFR ( Amer) 40 L Est GFR (MDRD) Non-Af 33 L Glucose 120 H POC Glucose 120 H Urine Protein Urine Ketones Urine Blood Ur Leukocyte Esterase 05/10/20 14:00 RDW Lymph % (Auto) Seg Neutrophils % Creatinine Est GFR ( Amer) Est GFR (MDRD) Non-Af Glucose POC Glucose Urine Protein 100 H Urine Ketones TRACE H Urine Blood MODERATE H Ur Leukocyte Esterase LARGE H - Diagnostic Test Radiology reviewed: Image reviewed, Reports reviewed - EKG Interpretation by Me EKG shows normal: Sinus rhythm Rate: Normal - 94 Rhythm: NSR Shiro/QRS: LAHB/LAFB Discharge - Discharge Clinical Impression: Weakness UTI (urinary tract infection) Qualifiers: Urinary tract infection type: acute cystitis Hematuria presence: without hematuria Qualified Code(s): N30.00 - Acute cystitis without hematuria Condition: Fair Disposition: ADMITTED INPATIENT Admitting Provider: Martinez Unit Admitted: IMCU Referrals: Francis TRUONG MD [ACTIVE STAFF] - Follow up as needed
[2020-05-10] MEDS ORDERED: NORMAL SALINE 1000 ML 1,000 ML IV PRN (17:45)
[2020-05-10] MEDS ORDERED: ACETAMINOPHEN 325 MG TABLET PO PRN (17:45)
[2020-05-10] MEDS ORDERED: DOCUSATE SODIUM 100 MG CAPSULE PO SCH (18:00)
--- NOTE | 2020-05-10 20:40 | RADIOLOGY REPORT (SQ) ---
EXAM DESCRIPTION: MRI BRAIN WITHOUT INTRAVENOUS CONTRAST CLINICAL HISTORY: Headache and weakness COMPARISON: CT head performed the same day TECHNIQUE: MRI of the brain was performed without intravenous contrast, in a multiplanar/multisequence format. FINDINGS: Significantly limited by motion artifact. There is no intracranial hemorrhage, midline shift, mass effect or acute focal infarct. Minimal T2 FLAIR punctate signal hyperintensities are nonspecific but can be seen in the setting of minimal chronic microvascular ischemic disease. There is a good luis/white matter differentiation. Normal flow voids are seen in the intracranial arterial circulation. The ventricular system is normal. Limited evaluation of the pituitary fossa, bilateral cerebellopontine angles and bilateral IAC region appear unremarkable. IMPRESSION: Technically limited exam. Negative for acute findings on the noncontrast MRI of the brain. MR BRAIN ANGIOGRAPHY WITHOUT IV CONTRAST, MR BRAIN WITHOUT IV CONTRAST HISTORY: Headache and weakness COMPARISON: None. TECHNIQUE: MR angiography of the brain was performed without the administration of intravenous gadolinium. FINDINGS: The anterior and posterior cerebral circulations are patent. No hemodynamically significant stenosis, aneurysmal dilatation or dissection is seen. No focal aneurysm is identified. IMPRESSION: Unremarkable MR angiogram of the brain.
[2020-05-10 20:46] VITALS: BP 134/78
[2020-05-10] MEDS ORDERED: FAMOTIDINE 20 MG TABLET PO SCH (22:00)
--- NOTE | 2020-05-11 09:19 | PDOC H&P ---
History of Present Illness Admission Date/PCP: 05/10/20 17:54 VALERIANO SHEPPARD MD Patient complains of: Altered mental status History of Present Illness: REBECA WRIGHT is a 75 year old female Is a 75-year-old female present in the emergency department some altered mental status and not able to walk any weakness Patient initially admitting in the hospital with a CT of the head MRI of the head negative for any acute finding patient is consistent with a urinary tract infections Patient in the floor went over there and the patient's walk with a walker and patient received IV fluid and IV antibiotic and the family decided to take her home AGAINST MEDICAL ADVICEFbefore I see the patient Past Medical History Cardiac Medical History: Reports: Hyperlipidema, Hypertension Past Surgical History Past Surgical History: Reports: Other - Cataract surgery 1 year ago with the film removed couple months ago. Social History Smoking Status: Never Smoker Family History Family History: Reviewed & Not Pertinent Parental Family History Reviewed: Yes Children Family History Reviewed: Yes Sibling(s) Family History Reviewed.: Yes Medication/Allergy Home Medications: Aspirin [Ecotrin 81 mg EC Tablet] 81 mg PO DAILY 05/10/20 Atorvastatin Calcium [Lipitor 20 mg Tablet] 20 mg PO QHS 05/10/20 Lisinopril [Prinivil] 20 mg PO DAILY 05/10/20 Methimazole [Tapazole] 5 mg PO Q2DAYS 05/10/20 Allergies/Adverse Reactions: No Known Allergies Allergy (Verified 01/26/19 15:18) Review of Systems Constitutional: PRESENT: fatigue, weakness. ABSENT: chills, fever(s), headache(s), weight gain, weight loss Eyes: ABSENT: visual disturbances Ears: ABSENT: hearing changes Cardiovascular: ABSENT: chest pain, dyspnea on exertion, edema, orthropnea, palpitations Respiratory: ABSENT: cough, hemoptysis Gastrointestinal: ABSENT: abdominal pain, constipation, diarrhea, hematemesis, hematochezia, nausea, vomiting Genitourinary: ABSENT: dysuria, hematuria Musculoskeletal: ABSENT: joint swelling Integumentary: ABSENT: rash, wounds Neurological: ABSENT: abnormal gait, abnormal speech, confusion, dizziness, focal weakness, syncope Psychiatric: ABSENT: anxiety, depression, homidical ideation, suicidal ideation Endocrine: ABSENT: cold intolerance, heat intolerance, menstrual abnormalities, polydipsia, polyuria Hematologic/Lymphatic: ABSENT: easy bleeding, easy bruising, lymphadenopathy Physical Exam Vital Signs: Temp Pulse Resp BP Pulse Ox 97.8 F 80 18 134/78 H 100 05/10/20 20:24 05/10/20 20:24 05/10/20 20:24 05/10/20 20:24 05/10/20 20:24 Intake & Output 05/10/20 05/11/20 05/12/20 06:59 06:59 06:59 Intake Total 50 Balance 50 Weight 57.7 kg Results Laboratory Results: 05/10/20 14:00 05/10/20 14:00 05/10/20 05/10/20 05/10/20 14:00 14:00 14:00 WBC 7.7 RBC 4.18 Hgb 12.4 Hct 37.4 MCV 90 MCH 29.7 MCHC 33.2 RDW 14.2 H Plt Count 198 Seg Neutrophils % 83.0 H Sodium 139.9 Potassium 4.2 Chloride 104 Carbon Dioxide 26 Anion Gap 10 BUN 18 Creatinine 1.52 H Est GFR ( Amer) 40 L Glucose 120 H Calcium 10.1 Total Bilirubin 0.9 AST 24 Alkaline Phosphatase 97 Total Protein 7.0 Albumin 4.1 Urine Color YELLOW Urine Appearance CLOUDY Urine pH 5.0 Ur Specific [place] 1.014 Urine Protein 100 H Urine Glucose (UA) NEGATIVE Urine Ketones TRACE H Urine Blood MODERATE H Urine Nitrite NEGATIVE Ur Leukocyte Esterase LARGE H Urine WBC (Auto) >182 Urine RBC (Auto) 35 05/10/20 14:00 Troponin I 0.018 Impressions: Brain MRI with MRA 05/10/20 00:00 IMPRESSION: Technically limited exam. Negative for acute findings on the noncontrast MRI of the brain. MR BRAIN ANGIOGRAPHY WITHOUT IV CONTRAST, MR BRAIN WITHOUT IV CONTRAST HISTORY: Headache and weakness COMPARISON: None. TECHNIQUE: MR angiography of the brain was performed without the administration of intravenous gadolinium. FINDINGS: The anterior and posterior cerebral circulations are patent. No hemodynamically significant stenosis, aneurysmal dilatation or dissection is seen. No focal aneurysm is identified. IMPRESSION: Unremarkable MR angiogram of the brain. Head MRI 05/10/20 00:00 IMPRESSION: Technically limited exam. Negative for acute findings on the noncontrast MRI of the brain. MR BRAIN ANGIOGRAPHY WITHOUT IV CONTRAST, MR BRAIN WITHOUT IV CONTRAST HISTORY: Headache and weakness COMPARISON: None. TECHNIQUE: MR angiography of the brain was performed without the administration of intravenous gadolinium. FINDINGS: The anterior and posterior cerebral circulations are patent. No hemodynamically significant stenosis, aneurysmal dilatation or dissection is seen. No focal aneurysm is identified. IMPRESSION: Unremarkable MR angiogram of the brain. Chest X-Ray 05/10/20 12:51 IMPRESSION: THORACIC AORTIC ANEURYSM. OTHERWISE NO ACUTE RADIOGRAPHIC FINDING IN THE CHEST. Head CT 05/10/20 12:51 IMPRESSION: NORMAL BRAIN CT WITHOUT CONTRAST. EVIDENCE OF ACUTE STROKE: NO. Assessment & Plan - Diagnosis (1) Endometrial cancer Is this a current diagnosis for this admission?: Yes (2) Hypertension Is this a current diagnosis for this admission?: Yes (3) Mixed hyperlipidemia Is this a current diagnosis for this admission?: Yes (4) Thyroid disorder Is this a current diagnosis for this admission?: Yes (5) UTI (urinary tract infection) Qualifiers: Urinary tract infection type: acute cystitis Hematuria presence: without hematuria Qualified Code(s): N30.00 - Acute cystitis without hematuria Is this a current diagnosis for this admission?: Yes - Time Time Spent: 30 to 50 Minutes Smoking Cessation Education: 3 to 10 minutes Medications reviewed and adjusted accordingly: Yes Anticipated Discharge Disposition: Home, Self Care Anticipated Discharge Timeframe: within 24 hours - Inpatient Certification Based on my medical assessment, after consideration of the patient's comorbidities, presenting symptoms, or acuity I expect that the services needed warrant INPATIENT care.: Yes I certify that my determination is in accordance with my understanding of Medicare's requirements for reasonable and necessary INPATIENT services [42 CFR 412.3e].: Yes Medical Necessity: Need Close Monitoring Due to Risk of Patient Decompensation, Need for IV Antibiotics Post Hospital Care: D/C Grants Specialist Documentation - Plan Summary Plan Summary: Admit the patient on the medical floors start on IV antibiotics reviewed all MRI CT scan again patient's left AMA before I see the patient
[2020-05-11] MEDS ORDERED: CEFTRIAXONE 1 GM/D5W RTU 1 GM/50 ML RTUPB IV SCH (10:00)
[2020-05-11] MEDS ORDERED: ENOXAPARIN SODIUM INJ 30 MG/0.3 ML DISP.SYRIN SUBCUT SCH (10:00)
--- NOTE | 2020-05-11 13:07 | Left Against Medical Advice ---
Against Medical Advice Admission Date/Time: 05/10/20 17:54 Primary Care Provider: VALERIANO SHEPPARD MD Date of Patient Emigration: 05/11/20 - Diagnosis: (1) Endometrial cancer Is this a current diagnosis for this admission?: Yes (2) Hypertension Is this a current diagnosis for this admission?: Yes (3) Mixed hyperlipidemia Is this a current diagnosis for this admission?: Yes (4) Thyroid disorder Is this a current diagnosis for this admission?: Yes (5) UTI (urinary tract infection) Is this a current diagnosis for this admission?: Yes - Summary: Summary: Please see Admission and Progress Notes as well. REBECA WRIGHT is a 75 F, who LEFT AGAINST MEDICAL ADVICE. The Patient was admitted on 05/10/20 17:54.
== END 2020-05-10 23:30 | disposition left against medical advice (07) | DRG 690 ==
LOC: ER 11:50 → EH 17:54 → 4W 20:15
PROVIDERS: ADMIT Family Medicine; ATTEND Family Medicine
DX: N30.00 Acute cystitis without hematuria (principal); I10 Essential (primary) hypertension; Z98.49 Cataract extraction status, unspecified eye; Z79.82 Long term (current) use of aspirin; Z79.899 Other long term (current) drug therapy; E78.2 Mixed hyperlipidemia; R53.1 Weakness; C54.1 Malignant neoplasm of endometrium
CPT/HCPCS: 36415; 70450; 70544; 70551; 71045; 80053; 81001; 82962; 84484; 85025; 85730; 87040; 87086; 87088; 87186; 93005; 93010; 96365; 99285; J0696; J7030

== ENCOUNTER → 2020-05-24 | Outpatient (CLI) | payer MEDICARE, OTHER ==
--- NOTE | 2020-05-24 09:37 | WOMENS IMAGING REPORT ---
EXAM DESCRIPTION: 3D SCREENING MAMMO BILAT IMAGES COMPLETED DATE/TIME: 05/24/2020 9:21 am REASON FOR STUDY: Z12.31 ENCNTR SCREEN MAMMOGRAM FOR MALIGNANT NEOPLASM OF BREAST Z12.31 ENCNTR SCR EEN MAMMOGRAM FOR MALIGNANT NEOPLASM OF [place] COMPARISON: Priors back to 2013 EXAM PARAMETERS: Views: Standard craniocaudal and mediolateral oblique views of each breast recorded using digital acquisition and breast tomosynthesis. Read with the assistance of CAD. .[facility] - R2 [employer] System Director Version 9.2 LIMITATIONS: None. FINDINGS: No suspicious masses, suspicious calcifications or architectural distortion. No areas of c oncern. IMPRESSION: NEGATIVE MAMMOGRAM. BIRADS 1. BREAST DENSITY: b. There are scattered areas of fibroglandular density. BIRAD: ASSESSMENT: 1 NEGATIVE RECOMMENDATION: ROUTINE SCREENING COMMENT: The patient has been notified of the results by letter per MQSA requirements. Additional no tification policies are in place for contacting patient with suspicious or incomplete findings. Quality ID #[id number]: The [employer] recommends an annual screening mammogram for women aged 40 years or over. This facility utilizes a reminder system to ensure that all patients receive reminder letters, and/or direct phone calls for appointments. This includes reminders for routine scr eening mammograms, diagnostic mammograms, or other Breast Imaging Interventions when appropriate. Th is patient will be placed in the appropriate reminder system. TECHNICAL DOCUMENTATION: FINDING NUMBER: (1) ASSESSMENT: (1) JOB ID: [id number] 2010 [employer]- All Rights Reserved Reading location - IP/workstation name: [email or web address]
== END ==
LOC: WI 08:51
PROVIDERS: ATTEND Family Medicine
DX: Z12.31 Encounter for screening mammogram for malignant neoplasm of breast (principal)
CPT/HCPCS: 77063; 77067